=== PATIENT | male | born 1965 | race Caucasian/White ===

== ENCOUNTER → 2021-09-28 | Outpatient (CLI) | payer OTHER ==
[~2021-09-28] MED LIST: ALBU8.5H; ASPI-226 PO; ATOR1TAB21 PO; AZEL1SPR3; BUDE10.2; CETI-24 PO; COMBAER6; D3-5CAP PO; FAMO40TA3 PO; FENO54TA2 PO; FLUT15.820; LEVO50TA5 PO; LISI10TA22 PO; MONT10TA97 PO; MUCI120T PO; OMEP-173 PO; RA M10TA PO
== END ==
LOC: M LABSMTC 09:31
PROVIDERS: ATTEND Anesthesiology
DX: Z01.818 Encounter for other preprocedural examination (principal); Z11.52 Encounter for screening for COVID-19

== ENCOUNTER 2021-10-02 09:46 | Day surgery (SDC) | payer OTHER ==
[~2021-10-02] VITALS: Ht 170.2 cm; Wt 87.1 kg
[~2021-10-02 09:46] MED LIST changes: +LIDOCAINE W/EPINEPHRINE 1% 20ML VIAL As Ordered ONE
[2021-10-02] MEDS ORDERED: LR 1,000 ML IV SCH ×3 (10:05→12:30)
[2021-10-02] MEDS ORDERED: propofoL 200 MG/20 ML VIAL As Ordered ONE (11:08)
[2021-10-02] MEDS ORDERED: ROCURONIUM BROMIDE 50 MG/5 ML VIAL As Ordered ONE (11:08)
[2021-10-02] MEDS ORDERED: LIDOCAINE 2% 100MG/5ML SDV (FOR ANES.) As Ordered ONE (11:09)
[2021-10-02] MEDS ORDERED: MIDAZOLAM INJ 2MG/2ML VIAL (J2250 PER 1MG) As Ordered ONE (11:10)
[2021-10-02] MEDS ORDERED: fentaNYL 100 MCG/2 ML INJECTION As Ordered ONE (11:11)
[2021-10-02] MEDS ORDERED: ACETAMINOPHEN 1000MG 100ML IV BTL (OFIRMEV) (J0131 PER 10MG) As Ordered ONE (11:58)
[2021-10-02] MEDS ORDERED: ONDANSETRON 4MG 2ML VIAL As Ordered ONE (11:58)
[2021-10-02] MEDS ORDERED: dexameTHASONE 4 MG/ML 1ML VIAL (J1100 PER 1MG) As Ordered ONE (11:58)
[2021-10-02] MEDS ORDERED: SUGAMMADEX SODIUM 500 MG/5 ML VIAL (BRIDION) As Ordered ONE (12:01)
[2021-10-02] MEDS ORDERED: ONDANSETRON 4MG 2ML VIAL IV PRN (12:05)
[2021-10-02] MEDS ORDERED: METOCLOPRAMIDE INJ 10MG/2ML VIAL (J2765 PER 1) IV PRN (12:05)
[2021-10-02] MEDS ORDERED: fentaNYL 100 MCG/2 ML INJECTION IV PRN (12:05)
[2021-10-02 12:56] VITALS: BP 102/61
== END 2021-10-02 13:20 | disposition home or self-care (01) ==
LOC: M SDC 09:46
PROVIDERS: ATTEND Dentist Oral and Maxillofacial Surgery
DX: K02.9 Dental caries, unspecified (principal); I10 Essential (primary) hypertension; J44.9 Chronic obstructive pulmonary disease, unspecified; J45.909 Unspecified asthma, uncomplicated; E03.9 Hypothyroidism, unspecified; E78.9 Disorder of lipoprotein metabolism, unspecified; F41.9 Anxiety disorder, unspecified; K21.9 Gastro-esophageal reflux disease without esophagitis; I34.8 Other nonrheumatic mitral valve disorders; I25.10 Atherosclerotic heart disease of native coronary artery without angina pectoris; M19.049 Primary osteoarthritis, unspecified hand; Z88.8 Allergy status to other drugs, medicaments and biological substances; Z79.899 Other long term (current) drug therapy; Z79.890 Hormone replacement therapy; Z79.82 Long term (current) use of aspirin; Z79.51 Long term (current) use of inhaled steroids; F15.11 Other stimulant abuse, in remission; F17.210 Nicotine dependence, cigarettes, uncomplicated
CPT/HCPCS: 88300; D7140; D9223; J0131; J1100; J2250; J2405; J3010